=== PATIENT | female | born 1940 | race Caucasian/White ===

== ENCOUNTER 2017-03-27 02:44 | Emergency (ER) | payer MEDICARE, MEDICAID ==
[~2017-03-27] VITALS: Ht 149.9 cm; Wt 90.7 kg
--- NOTE | 2017-03-27 03:04 | ED EENT ---
History of Present Illness General Chief Complaint: Nasal Problems Stated Complaint: NOSE BLEED Source: patient, EMS History of Present Illness Time seen by provider: 02:50 Initial Comments PT ARRIVES VIA [facility] FROM [facility] PT STATES SHE HAD BEEN UP TO THE BATHROOM AND SNEEZED A COUPLE OF TIMES, AND THEN BLEW HER NOSE AND NOSE STARTED BLEEDING--BEGAN APPROXIMATELY AN HOUR AGO BLEEDING FROM LEFT NARE--HAS STOPPED ON ARRIVAL PT VOMITED/GAGGED UP BLOOD X 2 FROM BLOOD DRAINING DOWN THE BACK OF HER THROAT NO NASAL PAIN OR RECENT SINUS INFECTION PT IS ON PLAVIX AND ASPIRIN 81 MG DENIES HISTORY OF SIMILAR Allergies and Home Medications Allergies Coded Allergies: Penicillins (Verified Allergy, Unknown, 03/27/17) Home Medications Cefuroxime Axetil 500 Mg Tablet, 500 MG PO BID, #20 Prescribed by: GILBERT TONY on 03/27/17 0419 Review of Systems Constitutional: no symptoms reported Eyes: No Symptoms Reported Ears: No Symptoms Reported Nose: see HPI, clots, epistaxis, denies pain Mouth: see HPI (SPITING UP BLOOD) Musculoskeletal: no symptoms reported Skin: no symptoms reported Neurological: No Symptoms Reported Hematologic/Lymphatic: See HPI Past Pektzqx-Opwbfn-Pgbuyj Hx Patient Social History Alcohol Use: Denies Use Recreational Drug Use: No Smoking Status: Never a Smoker Recent Foreign Travel: No Contact w/Someone Who Travel: No Respiratory Hx Respiratory Disorders: No Cardiovascular Hx Cardiac Disorders: Yes Cardiac Disorders: Coronary Artery Disease, High Cholesterol, Hypertension Neurological Hx Neurological Disorders: Yes Neurological Disorders: Dementia Blood Transfusions Hx Blood Disorders: No Physical Exam Vital Signs Vital Sign - Last 12Hours 03/27/17 03:09 Temp 98.6 Pulse 76 Resp 14 B/P (MAP) 167/115 Pulse Ox 98 O2 Delivery Room Air General Appearance: WD/WN, no apparent distress, other (VERY ANXIOUS) Nose: dried blood (CLOTTED BLOOD) Mouth/Throat: other (EDENTULOUS. CLOTTED BLOOD IN POSTERIOR PHARYNX) Neck: normal inspection Neurologic/Psychiatric: no motor/sensory deficits, alert, normal mood/affect Skin: normal color, warm/dry Nasal : Nasal Location: Left Clots Cleared from Nasal: Patient Blowing Nasal Drops Instilled: Afrin Inspection with: Otoscope Nasal Procedures: Rapid Rhino (5.5 CM ANTERIOR) Progress PACKED WITH RAPID RHINO AND BLEEDING CONTROLLED ALL CLOTS CLEARED IN POSTERIOR PHARYNX WITH GARGLING/SPITTING PT OBSERVED IN ER FOR AN HOUR WITH NO FURTHER BLEEDING, AND POSTERIOR PHARYNX CLEAR AT TIME OF DISMISSAL Progress/Results/Core Measures Results/Orders Lab Results Laboratory Tests Test 03/27/17 03:04 03/27/17 04:11 Range/Units White Blood Count 7.9 4.3-11.0 10^3/uL Red Blood Count 4.09 L 4.35-5.85 10^6/uL Hemoglobin 12.5 11.5-16.0 G/DL Hematocrit 38 35-52 % Mean Corpuscular Volume 92 80-99 FL Mean Corpuscular Hemoglobin 31 25-34 PG Mean Corpuscular Hemoglobin Concent 33 32-36 G/DL Red Cell Distribution Width 14.5 10.0-14.5 % Platelet Count 420 H 130-400 10^3/uL Mean Platelet Volume 11.1 H 7.4-10.4 FL Neutrophils (%) (Auto) 56 42-75 % Lymphocytes (%) (Auto) 33 12-44 % Monocytes (%) (Auto) 7 0-12 % Eosinophils (%) (Auto) 3 0-10 % Basophils (%) (Auto) 1 0-10 % Neutrophils # (Auto) 4.5 1.8-7.8 X 10^3 Lymphocytes # (Auto) 2.6 1.0-4.0 X 10^3 Monocytes # (Auto) 0.5 0.0-1.0 X 10^3 Eosinophils # (Auto) 0.2 0.0-0.3 10^3/uL Basophils # (Auto) 0.1 0.0-0.1 10^3/uL Prothrombin Time 12.6 12.2-14.7 SEC INR Comment 1.0 0.8-1.4 Activated Partial Thromboplast Time 28 24-35 SEC Glucometer 254 H 70-110 MG/DL My Orders Orders - GILBERT TONY DO Cbc With Automated Diff (03/27/17 02:56) Protime With Inr (03/27/17 02:56) Partial Thromboplastin Time (03/27/17 02:56) Oxymetazoline 0.05% Nasal [place] (Afrin 0. (03/27/17 03:12) Medications Given in ED Vital Signs/I&O Progress Note : Progress Note BLEEDING RESTARTED SHORTLY AFTER ARRIVAL AND WAS PACKED WITH RAPID RHINO WITH NO FURTHER BLEEDING Departure Impression Impression: Primary Impression: Epistaxis Additional Impression: anticoagulation therapy Disposition: 03 XFER SNF Condition: Improved Departure-Patient Inst. Referrals: GILBERT GOODWIN MD (PCP) Primary Care Physician SUHAS ROSE MD Patient Instructions: Nosebleeds (DC) Add. Discharge Instructions: LEAVE PACKING IN PLACE, DO NOT RUB NOSE OR BLOW NOSE CONTINUE YOUR CURRENT MEDICATIONS FOLLOW UP WITH DR. ROSE IN 1-2 DAYS FOR FURTHER CARE--CALL IN AM TO SCHEDULE APPOINTMENT. All discharge instructions reviewed with patient and/or family. Voiced understanding. Scripts Cefuroxime Axetil (Cefuroxime) 500 Mg Tablet 500 MG PO BID, #20 TAB Prov: GILBERT TONY DO 03/27/17 GILBERT TONY DO Mar 27, 2017 03:04
[2017-03-27 03:10] LABS: BASOPHILS # (AUTO) 0.1 10^3/uL (0.0-0.1); BASOPHILS % (AUTO) 1 % (0-10); EOSINOPHILS # (AUTO) 0.2 10^3/uL (0.0-0.3); EOSINOPHILS % (AUTO) 3 % (0-10); LYMPHOCYTES # (AUTO) 2.6 X 10^3 (1.0-4.0); LYMPHOCYTES % (AUTO) 33 % (12-44); MEAN CORPUSCULAR HEMOGLOBIN 31 PG (25-34); MEAN CORPUSCULAR HGB CONC 33 G/DL (32-36); MEAN CORPUSCULAR VOLUME 92 FL (80-99); MEAN PLATELET VOLUME 11.1 FL (7.4-10.4); MONOCYTES # (AUTO) 0.5 X 10^3 (0.0-1.0); MONOCYTES % (AUTO) 7 % (0-12); NEUTROPHILS # (AUTO) 4.5 X 10^3 (1.8-7.8); NEUTROPHILS % (AUTO) 56 % (42-75); PLATELET COUNT 420 10^3/uL (130-400); RED BLOOD COUNT 4.09 10^6/uL (4.35-5.85); RED CELL DISTRIBUTION WIDTH 14.5 % (10.0-14.5); WHITE BLOOD COUNT 7.9 10^3/uL (4.3-11.0)
[2017-03-27] MEDS ORDERED: OXYMETAZOLINE (AFRIN) 0.05% NA 15 ML BTL ONE (03:12)
[2017-03-27 03:21] LABS: PROTHROMBIN TIME PATIENT 12.6 SEC (12.2-14.7)
[2017-03-27] MEDS ORDERED: CEFU500T63 PO (04:19)
[2017-03-27 04:50] VITALS: BP 167/68
== END 2017-03-27 05:17 ==
LOC: EDUNIT# 02:44 → ER 02:49
DX: R04.0 Epistaxis (principal); D68.9 Coagulation defect, unspecified; I10 Essential (primary) hypertension; I25.10 Atherosclerotic heart disease of native coronary artery without angina pectoris; E03.9 Hypothyroidism, unspecified; F03.90 Unspecified dementia, unspecified severity, without behavioral disturbance, psychotic disturbance, mood disturbance, and anxiety
CPT/HCPCS: 36415; 82962; 85025; 85610; 85730; 99284

== ENCOUNTER → 2017-12-10 | Outpatient (CLI) | payer MEDICARE, MEDICAID ==
[~2017-12-10] MED LIST: CEFU500T63 PO
== END ==
LOC: WOUNDCARE 12:20
PROVIDERS: ATTEND Surgery
DX: I70.232 Atherosclerosis of native arteries of right leg with ulceration of calf (principal); L97.212 Non-pressure chronic ulcer of right calf with fat layer exposed; L98.491 Non-pressure chronic ulcer of skin of other sites limited to breakdown of skin; I89.0 Lymphedema, not elsewhere classified; L22 Diaper dermatitis; E11.65 Type 2 diabetes mellitus with hyperglycemia; R54 Age-related physical debility; E66.01 Morbid (severe) obesity due to excess calories; Z68.36 Body mass index [BMI] 36.0-36.9, adult
CPT/HCPCS: 99213

== ENCOUNTER → 2017-12-17 | Outpatient (CLI) | payer MEDICARE, MEDICAID | LOC: WOUNDCARE 13:00 | PROVIDERS: ATTEND Surgery | DX: I70.232 Atherosclerosis of native arteries of right leg with ulceration of calf (principal); L97.212 Non-pressure chronic ulcer of right calf with fat layer exposed; L98.491 Non-pressure chronic ulcer of skin of other sites limited to breakdown of skin; I89.0 Lymphedema, not elsewhere classified; L22 Diaper dermatitis; E11.65 Type 2 diabetes mellitus with hyperglycemia; R54 Age-related physical debility; E66.01 Morbid (severe) obesity due to excess calories; Z68.36 Body mass index [BMI] 36.0-36.9, adult | CPT/HCPCS: 99213 ==

== ENCOUNTER → 2017-12-24 | Outpatient (CLI) | payer MEDICARE, MEDICAID | LOC: WOUNDCARE 13:02 | PROVIDERS: ATTEND Surgery | DX: I70.232 Atherosclerosis of native arteries of right leg with ulceration of calf (principal); L97.212 Non-pressure chronic ulcer of right calf with fat layer exposed; L98.491 Non-pressure chronic ulcer of skin of other sites limited to breakdown of skin; I89.0 Lymphedema, not elsewhere classified; L22 Diaper dermatitis; E11.65 Type 2 diabetes mellitus with hyperglycemia; R54 Age-related physical debility; E66.01 Morbid (severe) obesity due to excess calories; Z68.36 Body mass index [BMI] 36.0-36.9, adult | CPT/HCPCS: 99213 ==

== ENCOUNTER → 2017-12-31 | Outpatient (CLI) | payer MEDICARE, MEDICAID ==
[~2017-12-31] MED LIST changes: +FUROSEMIDE 40 MG/4 ML INJ (LASIX) ONE; +ONDANSETRON 4 MG/2 ML (SDV) Z0FRAN ONE; +ceFAZolin 1,000 MG (ANCEF) VIAL ONE; +proPOfol 200 MG/20 ML (DIPRIVAN) VIAL IV ONE
== END ==
LOC: WOUNDCARE 13:10
PROVIDERS: ATTEND Surgery
DX: I70.232 Atherosclerosis of native arteries of right leg with ulceration of calf (principal); L97.212 Non-pressure chronic ulcer of right calf with fat layer exposed; I89.0 Lymphedema, not elsewhere classified; E11.65 Type 2 diabetes mellitus with hyperglycemia; R54 Age-related physical debility; E66.01 Morbid (severe) obesity due to excess calories; Z68.37 Body mass index [BMI] 37.0-37.9, adult
CPT/HCPCS: 11042

== ENCOUNTER → 2018-01-07 | Outpatient (CLI) | payer MEDICARE, MEDICAID ==
[~2018-01-07] MED LIST changes: +ASCO-262 PO; +ASPI-983 PO; +CITA20TA9 PO; +CLOP75TA69 PO; +CYCL5TAB PO; +DOCU-143 PO; +ERGO50006 PO; +FURO-124 PO; -FUROSEMIDE 40 MG/4 ML INJ (LASIX) ONE; +GUAI600T43 PO; +HYDR-3923 PO; +INSU100I14 SQ; +INSU100I29 SQ; +IPRA3AMP31 NEB; +ISOS120T6 PO; +LACT1CAP62 PO; +LACT1TAB25 PO; +LEVO112T55 PO; +LISI2.5T PO; +LORA-404 PO; +LORA10TA76 PO; +MELA3TAB PO; +MEMA5TAB PO; +METO-333 PO; +METO2.5T PO; +MULT1CAP27 PO; +NITR0.4T39 SL; +OMG1KC PO; -ONDANSETRON 4 MG/2 ML (SDV) Z0FRAN ONE; +OXYC-471 PO; +OXYM30SP NS; +PHEN-640 PO; +POLY17PO6 PO; +POTA10TA36 PO; +PRED5DRO17 OU; +PROP10DR4 OU; +RANI150T46 PO; +RANO500T3 PO; +RIVA1PAT3 TD; +SODI30SP2 NS; +TLT2T PO; -ceFAZolin 1,000 MG (ANCEF) VIAL ONE; -proPOfol 200 MG/20 ML (DIPRIVAN) VIAL IV ONE
== END ==
LOC: LAB 13:34
PROVIDERS: ATTEND Surgery
DX: E11.65 Type 2 diabetes mellitus with hyperglycemia (principal)
CPT/HCPCS: 36415; 83036

== ENCOUNTER → 2018-01-07 | Outpatient (CLI) | payer MEDICARE, MEDICAID | LOC: WOUNDCARE 12:34 | PROVIDERS: ATTEND Surgery | DX: I70.232 Atherosclerosis of native arteries of right leg with ulceration of calf (principal); L97.212 Non-pressure chronic ulcer of right calf with fat layer exposed | CPT/HCPCS: 11042 ==

== ENCOUNTER 2018-01-09 08:02 | Day surgery (SDC) | payer MEDICARE, MEDICAID ==
[~2018-01-09] VITALS: Ht 144.8 cm; Wt 74.4 kg
[2018-01-09] VITALS (14 sets, daily range): BP systolic 67–148; BP diastolic 28–89
[~2018-01-09 08:02] MED LIST changes: -ASCO-262 PO; -ASPI-983 PO; -CITA20TA9 PO; -CLOP75TA69 PO; -CYCL5TAB PO; -DOCU-143 PO; -ERGO50006 PO; -FURO-124 PO; -GUAI600T43 PO; -HYDR-3923 PO; -INSU100I14 SQ; -INSU100I29 SQ; -IPRA3AMP31 NEB; -ISOS120T6 PO; -LACT1CAP62 PO; -LACT1TAB25 PO; -LEVO112T55 PO; -LISI2.5T PO; -LORA-404 PO; -LORA10TA76 PO; -MELA3TAB PO; -MEMA5TAB PO; -METO-333 PO; -METO2.5T PO; -MULT1CAP27 PO; -NITR0.4T39 SL; -OMG1KC PO; -OXYC-471 PO; -OXYM30SP NS; -PHEN-640 PO; -POLY17PO6 PO; -POTA10TA36 PO; -PRED5DRO17 OU; -PROP10DR4 OU; -RANI150T46 PO; -RANO500T3 PO; -RIVA1PAT3 TD; -SODI30SP2 NS; -TLT2T PO
[2018-01-09] MEDS ORDERED: HEParin (CATH LAB) 2,000 ML IV ONE ×2 (08:06→13:58)
[2018-01-09] MEDS ORDERED: NS IV 1000 ML 1,000 ML ONE ×4 (08:06→13:58)
[2018-01-09] MEDS ORDERED: NS IV 1000 ML 1,000 ML IV SCH ×2 (08:14→11:54)
[2018-01-09 08:36] LABS: HEMOGLOBIN 16.5 G/DL (11.5-16.0); MEAN PLATELET VOLUME 10.5 FL (7.4-10.4); RED BLOOD COUNT 5.07 10^6/uL (4.35-5.85); RED CELL DISTRIBUTION WIDTH 14.5 % (10.0-14.5); WHITE BLOOD COUNT 8.3 10^3/uL (4.3-11.0)
[2018-01-09 08:48] LABS: INR 0.9 (0.8-1.4); PROTHROMBIN TIME PATIENT 12.1 SEC (12.2-14.7)
[2018-01-09 08:57] LABS: ALANINE AMINOTRANSFERASE 19 U/L (0-55); ALBUMIN 4.3 GM/DL (3.2-4.5); ALKALINE PHOSPHATASE 60 U/L (40-136); BILIRUBIN,TOTAL 0.8 MG/DL (0.1-1.0); BUN/CREATININE RATIO 17; CALCIUM 10.2 MG/DL (8.5-10.1); CARBON DIOXIDE 22 MMOL/L (21-32); CHLORIDE 105 MMOL/L (98-107); CHOLESTEROL 332 MG/DL (< 200); CREATININE SERUM 1.15 MG/DL (0.60-1.30); GFR ESTIMATED 46; GLUCOSE 244 MG/DL (70-105); HDL CHOLESTEROL 46 MG/DL (40-60); POTASSIUM 3.4 MMOL/L (3.6-5.0); SODIUM 139 MMOL/L (135-145); TOTAL PROTEIN 7.1 GM/DL (6.4-8.2); TRIGLYCERIDES 420 MG/DL (<150)
--- NOTE | 2018-01-09 09:00 | Diagnostic Imaging Report ---
INDICATION: Peripheral vascular disease and non-healing wound in patient with hypertension and diabetes. EXAMINATION: Portable upright AP view of the chest is obtained. COMPARISON: Comparison is made to study of 03/05/2007. FINDINGS: Postoperative changes in the mediastinum are again noted. Overall heart size and pulmonary vascularity are within normal limits. There is no pneumothorax or consolidation. No pleural fluid is seen. IMPRESSION: No acute abnormalities identified. Dictated by: Dictated on workstation # [id number]
[2018-01-09] MEDS ORDERED: fentaNYL INJECTION 100 MCG/2 ML AMP ONE (09:06)
[2018-01-09] MEDS ORDERED: ASPI-983 PO (09:31)
[2018-01-09] MEDS ORDERED: LACT1CAP62 PO (09:48)
[2018-01-09] MEDS ORDERED: LEVO112T55 PO (09:48)
[2018-01-09] MEDS ORDERED: HYDR-3923 PO (09:48)
[2018-01-09] MEDS ORDERED: CITA20TA9 PO (09:48)
[2018-01-09] MEDS ORDERED: LACT1TAB25 PO (09:48)
[2018-01-09] MEDS ORDERED: ISOS120T6 PO (09:48)
[2018-01-09] MEDS ORDERED: METO-333 PO (09:48)
[2018-01-09] MEDS ORDERED: PRED5DRO17 OU (09:48)
[2018-01-09] MEDS ORDERED: ASCO-262 PO (09:48)
[2018-01-09] MEDS ORDERED: RIVA1PAT3 TD (09:48)
[2018-01-09] MEDS ORDERED: POLY17PO6 PO (09:48)
[2018-01-09] MEDS ORDERED: FURO-124 PO (09:48)
[2018-01-09] MEDS ORDERED: RANO500T3 PO (09:48)
[2018-01-09] MEDS ORDERED: RANI150T46 PO (09:48)
[2018-01-09] MEDS ORDERED: IPRA3AMP31 NEB ×2 (09:48→09:52)
[2018-01-09] MEDS ORDERED: MEMA5TAB PO (09:48)
[2018-01-09] MEDS ORDERED: METO2.5T PO (09:48)
[2018-01-09] MEDS ORDERED: SODI30SP2 NS (09:48)
[2018-01-09] MEDS ORDERED: OMG1KC PO (09:48)
[2018-01-09] MEDS ORDERED: INSU100I29 SQ ×2 (09:48)
[2018-01-09] MEDS ORDERED: CLOP75TA69 PO (09:48)
[2018-01-09] MEDS ORDERED: DOCU-143 PO (09:48)
[2018-01-09] MEDS ORDERED: MULT1CAP27 PO (09:48)
[2018-01-09] MEDS ORDERED: ERGO50006 PO (09:48)
[2018-01-09] MEDS ORDERED: GUAI600T43 PO (09:48)
[2018-01-09] MEDS ORDERED: LORA10TA76 PO (09:48)
[2018-01-09] MEDS ORDERED: INSU100I14 SQ ×3 (09:48)
[2018-01-09] MEDS ORDERED: TLT2T PO (09:48)
[2018-01-09] MEDS ORDERED: POTA10TA36 PO (09:48)
[2018-01-09] MEDS ORDERED: OXYM30SP NS (09:48)
[2018-01-09] MEDS ORDERED: LISI2.5T PO (09:48)
[2018-01-09] MEDS ORDERED: CYCL5TAB PO (09:52)
[2018-01-09] MEDS ORDERED: PHEN-640 PO (09:52)
[2018-01-09] MEDS ORDERED: MELA3TAB PO (09:52)
[2018-01-09] MEDS ORDERED: LORA-404 PO (09:52)
[2018-01-09] MEDS ORDERED: PROP10DR4 OU (09:52)
[2018-01-09] MEDS ORDERED: OXYC-471 PO (09:52)
[2018-01-09] MEDS ORDERED: NITR0.4T39 SL (09:52)
[2018-01-09] MEDS ORDERED: MIDAZOLAM 5 MG/5 ML (VERSED) VIAL ONE (09:56)
[2018-01-09] MEDS ORDERED: LIDOCAINE 1% INJ 50 ML (XYLOCAINE) VIAL ONE ×2 (09:56→13:58)
[2018-01-09] MEDS ORDERED: HEParin 1000 UNIT/ML (10ML VIAL) FOR BOLUS ONE (10:00)
[2018-01-09 10:59] LABS: BILIRUBIN,URINE NEGATIVE (NEGATIVE); CLARITY,URINE SLIGHTLY CLOUDY; COLOR,URINE YELLOW; GLUCOSE, URINE (UA) NEGATIVE (NEGATIVE); KETONES,URINE NEGATIVE (NEGATIVE); LEUKOCYTE ESTERASE ,URINE 2+ (NEGATIVE); NITRITE,URINE NEGATIVE (NEGATIVE); PH,URINE 6.5 (5-9); PROTEIN,URINE 3+ (NEGATIVE); UROBILINOGEN,URINE NORMAL (NORMAL)
[2018-01-09 11:16] LABS: BACTERIA,URINE TRACE /HPF
[2018-01-09] MEDS ORDERED: ASPIRIN 325 MG (5 GR) TABLET ONE (11:50)
[2018-01-09] MEDS ORDERED: ONDANSETRON 4 MG/2 ML (SDV) Z0FRAN ONE ×2 (11:50→13:13)
[2018-01-09] MEDS ORDERED: CLOPIDOGREL 300 MG (PLAVIX) TABLET PO ONE (11:51)
[2018-01-09] MEDS ORDERED: DOPamine DRIP 250 ML IV ONE (11:52)
--- NOTE | 2018-01-09 11:57 | Cardiac Procedure Note-CS/ASA ---
Pre-Procedure Note Pre-Op Procedure Note H&P Reviewed The H&P was reviewed, patient examined and no changes noted. Date H&P Reviewed: Jan 09, 2018 Time H&P Reviewed: 10:00 Conscious Sedation Pre-Proced Time Reviewed: 10:00 ASA Class: 3 Airway Mallampati Classification: (wichita appropriate class) I. II. III, IV Lungs Heart ASA score ASA 1: a normal healthy patient ASA 2: a patient with a mild systemic disease (mid diabetes, controlled hypertension, obesity x ASA 3: a patient with a severe systemic disease that limits activity (angina , COPD, prior Myocardial infarction) ASA 4: a patient with an incapacitating disease that is a constant threat to life (CHF, renal failure) ASA 5: a moribund patient not expected to survive 24 hrs. (ruptured aneurysm) ASA 6: a declared brain patient whose organs are being harvested. For emergent operations, add the letter E after the classification Grade 3 Sedation Plan: Analgesia, Amnesia, Plan communicated to team members, Discussed options with patient/fam, Discussed risks with patient/fam Note The patient is an appropriate candidate to undergo the planned procedure, sedation, and anesthesia. The patient immediately re-assessed prior to indication. OMAR HAMILTON MD Jan 09, 2018 11:57
[2018-01-09] MEDS ORDERED: PATIENT MAY USE OWN MEDS, ALL PO SCH (12:00)
[2018-01-09] MEDS ORDERED: methylPREDNISolone 125 MG (Solu-MEDROL) VIAL ONE (12:50)
[2018-01-09 12:59] LABS: HEMOGLOBIN 9.3 G/DL (11.5-16.0)
[2018-01-09] MEDS ORDERED: CATHETER FLUSH 10 ML SYR IV PRN (13:15)
[2018-01-09] MEDS ORDERED: NS 1000 ML IV BAG IV ONE (13:30)
[2018-01-09] MEDS ORDERED: SUCCINYLCHOLINE INJ 100 MG/5 ML SYR INJ ONE (13:30)
[2018-01-09] MEDS ORDERED: NS 250 ML (IVPB) BAG IV ONE (13:45)
[2018-01-09] MEDS ORDERED: IOHEXOL 350 MG/ML 100 ML (OMNIPAQUE 350) VIAL IV ONE (13:45)
--- NOTE | 2018-01-09 14:01 | Progress Note-Standard ---
Standard Progress Note Progress Notes/Assess & Plan Date Seen by Provider: Jan 09, 2018 Time Seen by Provider: 13:35 (13:35-13:45) Progress/Assessment & Plan Called to cardiac laborer mine for respiratory code blue. Pt was found on laborer mine table being ventilated with ambu by laborer mine RN non responsive but had a pulse. Anectine 60 mg given IV. Intubated with MAC 3 #7.5 ETT x 1 attempt Grade 1 view atraumatic. ETCO2 confimed with color change of EZ cap and equal breath sounds. Sats mid 90's with a poor pleth. Care assumed by laborer mine team after intubation with report given. Final Diagnosis Respiratory Arrest PAULA MANNING CRNA Jan 09, 2018 14:01
[2018-01-09] MEDS ORDERED: proPOfol 200 MG/20 ML (DIPRIVAN) VIAL IV ONE (14:04)
[2018-01-09] MEDS ORDERED: PROPOFOL DRIP (ICU) 0 ML IV ONE (14:22)
[2018-01-09] MEDS ORDERED: NS IV 500 ML 500 ML ONE (14:34)
--- NOTE | 2018-01-09 15:33 | Diagnostic Imaging Report ---
PROCEDURE: CT abdomen and pelvis with and without contrast. TECHNIQUE: Precontrast acquisitions were acquired through the abdomen and pelvis. Multiple contiguous axial images were obtained through the abdomen and pelvis after the administration of intravenous contrast. INDICATION: Patient status post iliac stent placement with episode of hypotension. The study is performed to evaluate for retroperitoneal hemorrhage. COMPARISON: No prior studies are available for comparison. FINDINGS: Imaging through the lung bases does show patchy airspace infiltrates in bilateral lower lobes. The liver, pancreas, and spleen are unremarkable. There does appear to be a large retroperitoneal bleed, located primarily on the right side. The kidney on the right is displaced anteriorly and also appears to be displaced inferiorly. There is contrast within both kidneys with excretion into the renal collecting systems. There does appear to be a sizable perinephric hematoma on the right, which could possibly be subcapsular as well. There is also a moderate amount of ill-defined high-density fluid in the anterior and posterior pararenal location consistent with blood. The arterial phase sequence does show some extravasated contrast along the cortex of the right kidney along the upper, mid, and lower poles. Extravasated contrast is seen extending superiorly as well on the right. No extravasation from the right main renal artery is seen. Left renal artery and kidney are unremarkable. The aorta is unremarkable. No extravasation from the iliacs is identified. Right-sided retroperitoneal hemorrhage does have a cephalocaudal extent of approximately 22 cm. The perinephric/subcapsular component has a thickness of approximately 4.3 cm laterally. Superiorly, the thickness is approximately 5.2 cm. There is a rounded low-density mass along the lower pole of the right kidney suggestive of a cyst. No definite free fluid within the abdomen is identified. Bowel loops are normal in caliber. There is moderate stool in the colon. The bladder is decompressed by a Richards catheter. IMPRESSION: 1. Bilateral lower lobe pulmonary infiltrates/atelectasis. 2. Large right-sided acute retroperitoneal bleed. A large amount of blood appears to be perinephric/subcapsular as well as within the anterior and posterior pararenal space on the right. There appears to be acute arterial extravasation along the right renal cortex, as described, suggestive of distal renal arterial injury. No definite aortic or iliac injury is seen. Dr. Chilel was notified of these results at the time of the scan. Dictated by: Dictated on workstation # [id number]
--- NOTE | 2018-01-09 15:52 | Cardiology Discharge Summary ---
Diagnosis/Chief Complaint Date of Admission January 09, 2018 Date of Discharge January 09, 2018 Admission Diagnosis peripheral artery disease Discharge Diagnosis Retroperitoneal bleed Right renal hematoma Peripheral arterial disease Coronary artery disease Nonhealing foot ulcer Chief Complaint/HPI Chief Complaint/HPI 77 years old lady patient of Dr. Jared Ko who has nonhealing foot ulcer, known to have extensive coronary artery disease, multiple stents to the right coronary artery and bypass identified as the MERCER to the LAD, no known other bypasses. Patient developed none healing foot ulcer on the right, underwent workup which suggested severe peripheral arterial disease. She was scheduled for her for angiogram possible angioplasty. Discharge Summary Hospital Course Hospital Course patient was admitted directly for diagnostic angiogram, underwent peripheral angiogram with kissing balloon angioplasty and stent to both iliac arteries with excellent results. At the end of the procedure patient became severely hypotensive, given IV fluid and dopamine, angiogram did not show any bleeding or complication. She was transferred to ICU and continued to become more hypotensive. I decided to break her back to the catheter lab brought her down evaluated her coronary anatomy which showed patent right coronary artery and severe disease at the left system, she is known to have the MERCER to the LAD, her left ventricular function by echo was normal. Thoracic aortogram showed heavy atherosclerotic plaque. Abdominal aortogram showed diffuse atherosclerotic disease. I suspect that there is a right renal/perirenal hematoma, I did angiogram to the right renal artery which showed staining at the inferior pole of the renal artery, I decided to take her for CT of the abdomen and pelvis which showed large hematoma around the right kidney and retroperitoneal hematoma, during that. Patient received multiple units of packed RBCs and IV fluid. Was on dopamine drip which was being weaned down slowly, CT with contrast showed continuous bleeding from the right kidney, I discussed the management plan with the urologist at [facility] and the vascular surgeon, consensus was to transfer her by air and monitor her possible coiling or embolizing the right branches of the renal artery or as a last resort nephrectomy. Upon discharge patient was intubated, blood pressure was ranging between 90 and 95 systolic. Sedated but following commands Labs Laboratory Tests 01/09/18 08:25: Urine Specific [place] 1.010L, Urine Protein 3+H, Urine Leukocyte Esterase 2+H, Urine WBC 5-10H 01/09/18 08:30: Hemoglobin 16.5H, Mean Platelet Volume 10.5H, Prothrombin Time 12.1L, Potassium Level 3.4L, Blood Urea Nitrogen 19H, Glucose Level 244H, Calcium Level 10.2H, Triglycerides Level 420H, Cholesterol Level 332H, LDL Cholesterol Direct 216H 01/09/18 12:14: Glucometer 282H 01/09/18 12:50: Hemoglobin 9.3#L, Hematocrit 28L IMPRESSION: 1. Bilateral lower lobe pulmonary infiltrates/atelectasis. 2. Large right-sided acute retroperitoneal bleed. A large amount of blood appears to be perinephric/subcapsular as well as within the anterior and posterior pararenal space on the right. There appears to be acute arterial extravasation along the right renal cortex, as described, suggestive of distal renal arterial injury. No definite aortic or iliac injury is seen. Dr. Chilel was notified of these results at the time of the scan. Procedures None. Discharge Physical Examination Allergies: Coded Allergies: Penicillins (Verified Allergy, Unknown, 03/27/17) Vitals & I&Os Vital Signs Date Time Temp Pulse Resp B/P (MAP) Pulse Ox O2 Delivery O2 Flow Rate FiO2 01/09/18 14:42 66 20 100 01/09/18 08:32 97.9 148/78 (101) 100 General Appearance: Severe Distress HEENT: PERRLA, EOMI Cardiovascular: Regular Rate, Normal S1, Normal S2 Abdominal: Normal Bowel Sounds, Other (Abdominal pain and fish bowel sounds) Extremities: Other (Sheath was sutured in the right and left femoral arteries, diminished pedal pulse) Neuro: Other (Sedated and intubated) Discharge Home Medications Reviewed and agree with Discharge Medication list on patient's Discharge Instruction sheet Instructions to Patient/Family Please see electronic discharge instructions given to patient. OMAR CHILEL MD Jan 09, 2018 15:52
--- NOTE | 2018-01-09 17:23 | Consultation ---
History of Present Illness History of Present Illness Patient Consulted On(abner/time) 01/09/18 15:14 Date Seen by Provider: Jan 09, 2018 Time Seen by Provider: 15:14 History of Present Illness consult requested by Dr. Chilel for retroperitoneal bleed. Patient evaluated in ct. patient is a 77 year old female who was undergoing diagnostic angiogram and kissing balloon angioplasty with stenting of iliac arteries. Patient then became hypotensive after procedure in ICU and was brought back to the labor conciliator for further evaluation. Patient by review of arteriogram appears to have two small blushes at right kidney. Patient was intubated due to respiratory code blue. Patient intubated and was remaining hypotensive around 60-[address] scan was performed which I reviewed and showed retroperitoneal hematoma with active extravasation of contrast. Patient was being transfused prbc and FFP. Allergies and Home Medications Allergies Coded Allergies: Penicillins (Verified Allergy, Unknown, 03/27/17) Home Medications Ascorbate Calcium 500 Mg Tablet, 500 MG PO DAILY, (Reported) Aspirin 81 Mg Tablet.dr, 81 MG PO DAILY, (Reported) Citalopram Hydrobromide 20 Mg Tablet, 20 MG PO DAILY, (Reported) Clopidogrel Bisulfate 75 Mg Tablet, 75 MG PO DAILY, (Reported) Cyclobenzaprine HCl 5 Mg Tablet, 5 MG PO Q8H PRN for MUSCLE SPASMS, (Reported) Docusate Sodium 100 Mg Capsule, 100 MG PO BID, (Reported) Ergocalciferol (Vitamin D2) 50,000 Unit Capsule, 50,000 UNIT PO Fr, (Reported) Furosemide 40 Mg Tablet, 40 MG PO DAILY, (Reported) Guaifenesin 600 Mg Tab.er.12h, 600 MG PO BID, (Reported) Hydralazine HCl 25 Mg Tablet, 25 MG PO TID, (Reported) HOLD IF SYSTOLIC LESS THAN 140 Insulin Aspart 300 Units/3 Ml Solution, 17 UNITS SQ 0730, (Reported) Insulin Aspart 300 Units/3 Ml Solution, 14 UNITS SQ NOON,PM, (Reported) Insulin Aspart 300 Units/3 Ml Solution, SQ AC, (Reported) 100-150= 0 151-200= 3 201-250= 5 251-300= 7 301-350= 9 351-400= 12 401-450= 14 451+ CALL PHYSICIAN Insulin Detemir 100 Unit/1 Ml Insuln.pen, 15 UNIT SQ 0730, (Reported) Insulin Detemir 100 Unit/1 Ml Insuln.pen, 40 UNIT SQ HS, (Reported) Ipratropium/Albuterol Sulfate 3 Ml Ampul.neb, 3 ML NEB HS, (Reported) Ipratropium/Albuterol Sulfate 3 Ml Ampul.neb, 3 ML NEB Q6H PRN for SHORTNESS OF BREATH, (Reported) Isosorbide Mononitrate 120 Mg Tab.er.24h, 120 MG PO DAILY, (Reported) HOLD IF SYSTOLIC BLOOD PRESSURE IS LESS THAN 100 OR PULSE BELOW 60 Lactobacillus Acidophilus 1 Each Tablet, 1 TAB PO QID, (Reported) Levothyroxine Sodium 112 Mcg Tablet, 112 MCG PO DAILY, (Reported) Lisinopril 2.5 Mg Tablet, 2.5 MG PO DAILY, (Reported) HOLD IF SYSTOLIC LOWER THAN 130 Loratadine 10 Mg Tablet, 10 MG PO DAILY, (Reported) Lorazepam 0.5 Mg Tablet, 0.25 MG PO Q12H PRN for ANXIETY, (Reported) TAKES 1/2 (0.5MG) TABLET Melatonin 3 Mg Tablet, 3 MG PO HS PRN for SLEEP, (Reported) Memantine HCl 5 Mg Tablet, 5 MG PO BID, (Reported) Metolazone 2.5 Mg Tablet, 2.5 MG PO MoFr, (Reported) Metoprolol Tartrate 25 Mg Tablet, 25 MG PO DAILY, (Reported) Multivitamin 1 Each Capsule, 1 CAP PO DAILY, (Reported) Nitroglycerin 0.4 Mg Tab.subl, 0.4 MG SL UD PRN for CHEST PAIN, (Reported) [place] 3 Polyunsat Fatty Acids 1,000 Mg Cap, 1,000 MG PO DAILY, (Reported) Oxycodone HCl/Acetaminophen 1 Each Tablet, 1 TAB PO Q6H PRN for PAIN-MODERATE, ( Reported) Oxymetazoline HCl 30 Ml [place], 2 SPRAYS NS BID, (Reported) LEFT NOSTRIL Phenazopyridine HCl 200 Mg Tablet, 200 MG PO DAILY PRN for BLADDER SPASMS, ( Reported) Polyethylene Glycol 3350 17 Gm Powd.pack, 17 GM PO DAILY, (Reported) Potassium Chloride 10 Meq Tab.er.prt, 10 MEQ PO DAILY, (Reported) Prednisolone Acetate 5 Ml Drops.susp, 1 DROP OU BID, (Reported) 1% Propylene Glycol/Peg 400 10 Ml Drops.gel, 2 DROPS OU UD PRN for DRY EYES, ( Reported) Ranitidine HCl 150 Mg Tablet, 150 MG PO DAILY, (Reported) Ranolazine 500 Mg Tab.er.12h, 500 MG PO BID, (Reported) Rivastigmine 9.5 Mg Patch, 9.5 MG TD DAILY, (Reported) Sodium Chloride 30 Ml [place], 2 SPRAYS NS TID, (Reported) Tolterodine Tartrate 2 Mg Tablet, 2 MG PO DAILY, (Reported) Patient Home Medication List Home Medication List Reviewed: Yes Past Pdqdptq-Ebplhm-Waakub Hx Patient Social History Smoking Status: Never a Smoker Recent Foreign Travel: No Contact w/Someone Who Travel: No Recent Infectious Disease Expo: No Recent Hopitalizations: Yes (urosepsis) Immunizations Up To Date Date of Pneumonia Vaccine: Jan 09, 2014 Seasonal Allergies Seasonal Allergies: No Surgeries History of Surgeries: No Respiratory History of Respiratory Disorde: No Cardiovascular History of Cardiac Disorders: Yes Cardiac Disorders: Coronary Artery Disease, High Cholesterol, Hypertension Neurological History of Neurological Disord: Yes Neurological Disorders: Dementia Genitourinary History of Genitourinary Disor: Yes Genitourinary Disorders: Neurogenic Bladder Gastrointestinal Gastrointestinal Disorders: Gastroesophageal Reflux Endocrine History of Endocrine Disorders: Yes Endocrine Disorders: Diabetes, Insulin dep, Hypothyroidsim Cancer History of Cancer: No Psychosocial History of Psychiatric Problem: Yes Behavioral Health Disorders: Anxiety Integumentary History of Skin or Integumenta: No Family Medical History Significant Family History: No Pertinent Family Hx Review of Systems-General ROS-Unable to Obtain: unable to be obtained due to patient intubated Constitutional: see HPI Physical Exam-General Problems Physical Exam Vital Signs Vital Signs - First Documented 01/09/18 01/09/18 01/09/18 01/09/18 08:32 12:20 13:48 14:42 Temp 97.9 Pulse 80 Resp 20 B/P (MAP) 148/78 (101) Pulse Ox 100 O2 Delivery Room Air O2 Flow Rate 15.00 FiO2 100 Capillary Refill : Less Than 3 Seconds General Appearance: other (intubated and sedated) HEENT: PERRL/EOMI Neck: supple Respiratory: other (intubated) Cardiovascular: regular rate, rhythm Gastrointestinal: soft, distended (slight, patient with several scars on abdomen from previous surgery) Rectal: deferred Back: normal inspection Extremities: pelvis stable Neurologic/Psychiatric: other (intubated and sedated) Skin: warm/dry Lymphatic: no adenopathy Data Review Labs Laboratory Tests 01/09/18 08:25: Urine Color YELLOW, Urine Clarity SLIGHTLY CLOUDY, Urine pH 6.5, Urine Specific [place] 1.010L, Urine Protein 3+H, Urine Glucose (UA) NEGATIVE, Urine Ketones NEGATIVE, Urine Nitrite NEGATIVE, Urine Bilirubin NEGATIVE, Urine Urobilinogen NORMAL, Urine Leukocyte Esterase 2+H, Urine RBC (Auto) NEGATIVE, Urine RBC NONE , Urine WBC 5-10H, Urine Squamous Epithelial Cells 5-10, Urine Crystals NONE, Urine Bacteria TRACE, Urine Casts NONE, Urine Mucus NEGATIVE, Urine Culture Indicated YES 01/09/18 08:30: White Blood Count 8.3, Red Blood Count 5.07, Hemoglobin 16.5H, Hematocrit 47, Mean Corpuscular Volume 93, Mean Corpuscular Hemoglobin 33, Mean Corpuscular Hemoglobin Concent 35, Red Cell Distribution Width 14.5, Platelet Count 258, Mean Platelet Volume 10.5H, Prothrombin Time 12.1L, INR Comment 0.9, Activated Partial Thromboplast Time 28, Sodium Level 139, Potassium Level 3.4L, Chloride Level 105, Carbon Dioxide Level 22, Anion Gap 12, Blood Urea Nitrogen 19H, Creatinine 1.15, Estimat Glomerular Filtration Rate 46, BUN/Creatinine Ratio 17 , Glucose Level 244H, Calcium Level 10.2H, Total Bilirubin 0.8, Aspartate Amino Transf (AST/SGOT) 18, Alanine Aminotransferase (ALT/SGPT) 19, Alkaline Phosphatase 60, Total Protein 7.1, Albumin 4.3, Triglycerides Level 420H, Cholesterol Level 332H, LDL Cholesterol Direct 216H, VLDL Cholesterol , HDL Cholesterol 46 01/09/18 12:14: Glucometer 282H 01/09/18 12:50: Hemoglobin 9.3#L, Hematocrit 28L Assessment/Plan Assessment/Plan Assessment/Plan retroperitoneal bleed with right kidney hematoma with active extravasation hypotension hypovolemia anemia secondary to acute blood loss respiratory failure requiring intubation patient with active extravasation from right kidney. patient receiving prbc and ffp at this time would continue to transfuse as needed she has been anticoagulated and recommend reversing discussed with Dr. Chilel transfer to facility with IR for possible coiling and urology for possible nephrectomy if needed. he is arranging transfer. ANGE CARTWRIGHT DO Jan 09, 2018 17:23
[2018-01-10] MEDS ORDERED: ASPIRIN E.C. 81 MG (ECOTRIN) TAB PO SCH (09:00)
[2018-01-10] MEDS ORDERED: CLOPIDOGREL 75 MG (PLAVIX) TABLET PO SCH (09:00)
--- NOTE | 2018-01-14 08:35 | OPERATIVE REPORT ---
DATE OF SERVICE: 01/09/2018 PERIPHERAL ANGIOGRAM REPORT AND CORONARY ANGIOGRAM REPORT REFERRING PHYSICIAN: Jared Ko MD BRIEF HISTORY: The patient is a 77-year-old lady with history of coronary artery disease, had multiple stents in the past, had history of bypass surgery, questionable single bypass using MERCER to LAD. Has peripheral arterial disease with nonhealing ulcer on the right leg. The patient was referred by Dr. Jared Ko for evaluation and peripheral angiogram. PROCEDURE NOTE: After explaining the procedure to the patient and her family, all pros and cons were explained, all risks and benefits were discussed and all questions from the patient and the family were answered, consent was signed. The patient was placed on the cardiac catheterization laboratory. Left groin was prepped in a sterile fashion. Local anesthesia applied to the left groin, # 6-Lao sheath was placed in the left femoral artery with difficulties. 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 Angiogram showed severe stenosis at the right iliac artery and total occlusion of the right SFA at its ostium reconstructed at the popliteal level with slow flow beyond that point. After reviewing the condition, I decided to proceed with balloon angioplasty and kissing stent to the iliac artery and trying to avoid the ostium of the iliac artery in case I will need to access it later to put the sheath across for percutaneous intervention to the Femoral artery. A second 6 Lao sheath was placed in the right femoral artery then I advanced 2 storq wires in both sheaths to the abdominal aorta, angiogram using pigtail catheter was done the the pigtail catheter was removed over a long Storq wire that was left in the abdominal aorta for balloon angioplasty. I did kissing balloon using 7.0 balloons in both iliac arteries. Then, I deployed 2 kissing balloon expandable stents 8.0 in diameter in the iliac artery then postdilated the area with the balloons, pigtail catheter was advanced over the Storq wire to the abdominal aorta and abdominal aortogram was done then it was removed again over the wire and 8 mm balloon was advanced in both arteries and kissing post deployment dilation was done. Angiogram showed improvement of the stenosis and The patient was stable at that point but started to become hypotensive. I started her on IV fluid and started monitoring her. Sheath was sutured in place. She continued to become more hypotensive, subsequently I started dopamine drip and repeated angiogram of the abdominal aorta, which did not show an active bleeding. Within half an hour, the patient' s blood pressure was continuing to become lower. I evaluated echocardiogram, which showed hyperdynamic left ventricle which is a sign of hypovolemia. Subsequently, I start blood transfusion then took her back to the rn cardiac cath, reevaluated the area with multiple angiograms to the abdominal and thoracic aorta and the Aortic bifurcation and coronary angiogram which showed severe left coronary artery disease, I did selective right renal artery angiogram that appeared to be displaced downward which is suggestive of pressure over the right kidney. The right renal artery appeared to be having extravasation of contrast secondary to perforation. Patient was short of breath, I decided to proceed with intubation and ralph lazar was called. I contacted vascular surgeon and urologist at [facility] and I proceeded with evaluating CT of the abdomen with and without contrast, which showed retroperitoneal bleed and hematoma and perirenal hematoma. The patient blood pressure was becoming more stable around 90-95 systolic after receiving 5 units of blood and 4 liters of normal saline and FFP. Arrangements were made to transfer her by air to [place] for embolization of the renal artery. CONCLUSION: 1. Severe peripheral arterial disease. 2. Severe coronary artery disease including severe stenosis at the LAD and circumflex artery, history of MERCER to the LAD that was not evaluated, patent stent in the right coronary artery. 3. 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 Successful balloon angioplasty and stenting using kissing stent 8.0 x 59 mm on the left iliac artery and 8.0 x 39 mm on the right iliac artery with excellent results, post-dilated to 8.5 mm. 4. Total occlusion on the right SFA at its ostium reconstructed at the popliteal level by collaterals. 5. Retroperitoneal bleed and perirenal bleed on the right side resulted in hypovolemic shock. 6. Status post respiratory failure and intubation. DISCUSSION AND RECOMMENDATION: The patient was resuscitated with IV fluid and blood transfusion, arrangements were made to transfer to [facility] for embolization of the right renal artery. Job ID: [id number] DocumentID: [id number] Dictated Date: 01/09/2018 17:19:53 [employer] [employer] Operator Date: 01/09/2018 20:46:02 Dictated By: OMAR HAMILTON MD [facility]
== END 2018-01-09 15:34 | disposition short-term general hospital (02) ==
LOC: CATH 08:02 → ICU 12:18 → CATH 15:34
PROVIDERS: ATTEND Internal Medicine Cardiovascular Disease
DX: I73.9 Peripheral vascular disease, unspecified (principal); N99.841 Postprocedural hematoma of a genitourinary system organ or structure following other procedure; I25.10 Atherosclerotic heart disease of native coronary artery without angina pectoris; Z95.1 Presence of aortocoronary bypass graft; R09.2 Respiratory arrest; Z95.5 Presence of coronary angioplasty implant and graft; E78.00 Pure hypercholesterolemia, unspecified; I10 Essential (primary) hypertension; F03.90 Unspecified dementia, unspecified severity, without behavioral disturbance, psychotic disturbance, mood disturbance, and anxiety; K21.9 Gastro-esophageal reflux disease without esophagitis; E03.9 Hypothyroidism, unspecified; E11.59 Type 2 diabetes mellitus with other circulatory complications; Z79.4 Long term (current) use of insulin; F41.9 Anxiety disorder, unspecified; I95.9 Hypotension, unspecified; E86.1 Hypovolemia; D62 Acute posthemorrhagic anemia; R58 Hemorrhage, not elsewhere classified; Z79.899 Other long term (current) drug therapy
CPT/HCPCS: 36251; 36415; 71045; 74178; 75630; 80053; 80061; 81000; 82962; 85014; 85018; 85027; 85610; 85730; 86850; 86900; 86901; 86920; 87077; 87081; 87088; 87186; 93005; 93308; 93454; 94002; 94799